=== PATIENT | female | born 1960 | race African-American/Black ===

== ENCOUNTER 2019-05-17 02:28 | Emergency (ER) | payer OTHER ==
[~2019-05-17] VITALS: Ht 157.5 cm; Wt 94.0 kg
[~2019-05-17 02:28] MED LIST: ACCUPRIL5 MG; AMOXICILLIN/CL875 MG OR; AMOXICILLIN500 MG PO; AMOXICILLIN875 MG PO; AUGMENTIN875TAB PO; BENADRYL25 M1 PO; BENZONATATE200 MG PO; CALCIUM/D600 M2 OR; CIPROFLOXACN500 MG PO; ESTRACE1 MG OR; FLEXERIL OR; FLEXERIL PO; FLONASE NASAL50 MCG; LISINOPRIL10 MG PO; LISINOPRIL20 M1 OR; MELOXICAM7.5 MG OR; MUCINEX600 MG PO; MULTI COMPLETE PO; NAPROSYN500 MG PO; NAPROXEN500 MG OR; NORCO1 TA1 OR; NORCO1 TA2 PO; OMEPRAZOLE40 MG PO; PREMARIN VAG0.625 MG VA; PREMARIN0.625 MG PO; ROBAXIN-750750 MG PO; VITAMIN B-12100 MCG OR; VITAMIN C500 M1 PO; VITAMIN D OR; ZESTRIL/PRI10 MG/TAB PO
[2019-05-17 02:29] VITALS: BP 147/94
[2019-05-17] MEDS ORDERED: VOLTAREN - GENE75 MG PO (03:19)
== END 2019-05-17 03:26 | disposition home or self-care (01) | DRG 605 ==
LOC: ED 02:28
DX: S80.01XA Contusion of right knee, initial encounter (principal); W17.89XA Other fall from one level to another, initial encounter

== ENCOUNTER 2020-01-24 06:41 | Emergency (ER) | payer OTHER ==
[~2020-01-24] VITALS: Ht 157.5 cm; Wt 95.0 kg
[~2020-01-24 06:41] MED LIST changes: +VOLTAREN - GENE75 MG PO
[2020-01-24] MEDS ORDERED: LISINOPRIL20 MG PO (07:02)
[2020-01-24] MEDS ORDERED: NORCO1 TA2 PO (07:03)
[2020-01-24] MEDS ORDERED: GNP OMEPRAZOLE20 MG PO (07:04)
[2020-01-24 08:01] LABS: HEMOGLOBIN 11.1 g/dl (12.0-16.0); IMMATURE GRANULOCYTES 0.4 % (0.0-5.0); MEAN CELL VOLUME 92.5 fL CALC (80.0-100.0); MEAN CORPUSCULAR HGB 27.8 pG CALC (26.0-32.0); NEUT# 3.46 thou/uL (2.00-7.15); RED CELL DISTRI WIDTH 14.4 % (11.5-15.5)
[2020-01-24 08:20] LABS: ANION GAP 8 (6-22 (CALC)); BUN 13 mg/dL (7-17); BUN/CREATININE RATIO 22 (12-20 (CALC)); CARBON DIOXIDE 28 mmol/l (22-30); CHLORIDE 106 mmol/l (95-108); CREATININE 0.6 mg/dL (0.5-1.0); GFR > 60 ML/MIN (>=60 (CALC)); GFR FOR AFR.AMER. > 60 ML/MIN (>=60 (CALC)); POTASSIUM 3.9 mmol/l (3.5-5.1); SODIUM 138 mmol/l (137-146)
[2020-01-24 09:38] VITALS: BP 160/76
== END 2020-01-24 09:57 | disposition home or self-care (01) | DRG 605 ==
LOC: ED 06:41
PROVIDERS: Family Medicine
DX: S20.212A Contusion of left front wall of thorax, initial encounter (principal); M25.552 Pain in left hip; I10 Essential (primary) hypertension; W01.0XXA Fall on same level from slipping, tripping and stumbling without subsequent striking against object, initial encounter; Y92.89 Other specified places as the place of occurrence of the external cause; Y99.0 Civilian activity done for income or pay
CPT/HCPCS: Q9967